=== PATIENT | female | born 1970 | race African-American/Black ===

== ENCOUNTER 2019-05-23 05:31 | Day surgery (SDC) | payer MEDICAID ==
[~2019-05-23] VITALS: Ht 157.5 cm; Wt 77.1 kg
[2019-05-23] MEDS ORDERED: LACTATED RINGERS 1,000 ML IV SCH (06:30)
[2019-05-23] MEDS ORDERED: MORPHINE SULFATE/PF 1MG/ML 10ML AMP ONE (06:53)
[2019-05-23] MEDS ORDERED: EPINEPHRINE 1:1000 1 MG/ML AMP ONE (06:53)
[2019-05-23] MEDS ORDERED: SKIN ADHESIVE 0.7 GM EA TOP ONE (06:53)
[2019-05-23] MEDS ORDERED: BUPIVACAINE/EPINEPH/PF 0.25%/0.0005 10ML ONE (06:53)
[2019-05-23 07:08] LABS: UCG SCREEN NEGATIVE
[2019-05-23] MEDS ORDERED: LIDOCAINE HCL/PF 1% 10 MG/ML 5ML VIAL ONE (07:39)
[2019-05-23] MEDS ORDERED: ONDANSETRON HCL 4MG/2ML INJ ONE (07:39)
[2019-05-23] MEDS ORDERED: PROPOFOL 200MG/20ML VIAL IV ONE (07:39)
[2019-05-23] MEDS ORDERED: GLYCOPYRROLATE 0.2 MG/ML 2ML VIAL ONE ×2 (07:39→08:36)
[2019-05-23] MEDS ORDERED: METOCLOPRAMIDE HCL 10MG/2ML VIAL ONE (07:39)
[2019-05-23] MEDS ORDERED: FENTANYL CITRATE/PF 50MCG/ML 2ML VIAL ONE ×2 (07:39→07:57)
[2019-05-23] MEDS ORDERED: MIDAZOLAM HCL 2 MG/2 ML VIAL ONE (07:39)
[2019-05-23] MEDS ORDERED: SUCCINYLCHOLINE CHLORIDE 200MG/10ML IV ONE (07:39)
[2019-05-23] MEDS ORDERED: ROCURONIUM BROMIDE 10MG/ML VIAL 5ML IV ONE (07:57)
[2019-05-23] MEDS ORDERED: CEFAZOLIN SODIUM 1000MG/VIAL ONE (07:59)
[2019-05-23] MEDS ORDERED: DEXAMETHASONE 4MG/ML 1ML VIAL ONE (08:12)
[2019-05-23] MEDS ORDERED: NEOSTIGMINE METHYLSULFATE 1MG/ML 10 ML VIAL ONE (08:36)
[2019-05-23] MEDS ORDERED: SODIUM CHLORIDE 0.9% 1,000 ML IV ONE (09:14)
[2019-05-23] MEDS ORDERED: ONDANSETRON HCL 4MG/2ML INJ IV PRN (09:15)
[2019-05-23] MEDS ORDERED: MORPHINE SULFATE 2 MG/ML CPJ (NOT FOR IM USE) IV PRN (09:15)
[2019-05-23] MEDS ORDERED: MEPERIDINE HCL/PF 25MG/ML CPJ IV PRN ×2 (09:15)
[2019-05-23] MEDS ORDERED: HYDROMORPHONE HCL/PF 2MG/ML CPJ IV PRN (09:15)
[2019-05-23] MEDS ORDERED: HYDROCODONE/ACETAMINOPHEN 10/325MG TABLET PO PRN (09:45)
== END 2019-05-23 12:30 | disposition home or self-care (01) ==
LOC: OR 05:31
PROVIDERS: ATTEND Orthopaedic Surgery
DX: S83.282A Other tear of lateral meniscus, current injury, left knee, initial encounter (principal); S83.242A Other tear of medial meniscus, current injury, left knee, initial encounter; M22.42 Chondromalacia patellae, left knee; I10 Essential (primary) hypertension; M65.9 Synovitis and tenosynovitis, unspecified; Z79.1 Long term (current) use of non-steroidal anti-inflammatories (NSAID); Z79.899 Other long term (current) drug therapy; Z98.890 Other specified postprocedural states; Z98.891 History of uterine scar from previous surgery; X58.XXXA Exposure to other specified factors, initial encounter; Y93.89 Activity, other specified; Y92.89 Other specified places as the place of occurrence of the external cause; Y99.8 Other external cause status
CPT/HCPCS: 29881; 81025; 88304; 88311; 97116; 97161; J0171; J0330; J0690; J1100; J2250; J2274; J2405; J2704; J2710; J2765; J3010; J3490